=== PATIENT | male | born 1990 | race Caucasian/White ===

== ENCOUNTER 2016-08-22 19:49 | Emergency (ER) | payer OTHER ==
--- NOTE | ~2016-08-22 | CR126 ---
[facility] A Service of [facility] RADIOLOGY TEXT RESULTS PATIENT: MICHELLE HOWARD LOCATION: [facility]FT[facility] : 88 UNIT #: [id number] AGE: [address]: Asuncion Ramirez APRN SEX: M ORDER DR: [id number] [facility] [address] [place], [place] [address] [id number] MR#: [id number] Acc #: [id number] NAME: MICHELLE HOWARD : 1990 SEX: M STUDY DATE/TIME: 08/22/2016 21:31 UNIT: [facility] ROOM: STUDY DESCRIPTION: CR Foot Complete Min 3 View Lt Attending Physician: Asuncion Ramirez A.P.R.N. Ordering Physician: Asuncion Ramirez A.P.R.N. MEDICAL IMAGING REPORT This report is preliminary unless electronic signature is present EXAM Left foot 08/22 INDICATIONS Puncture wound on the plantar surface after stepping on osvaldo cage today. COMPARISON STUDIES 01/24/2009. FINDINGS 3 views of the left foot were obtained. There is no fracture or malalignment. There are no radiopaque foreign bodies. There is no soft tissue gas. IMPRESSION Negative left foot. Dictated by... Oli Lees Jr., M.D. THIS IS AN ELECTRONICALLY VERIFIED REPORT Oli Lees Jr., M.D. at 08/22/2016 10:25 PM GARY/christie TD: 08/22/2016 22:09 JOB #: [id number] MEDICAL IMAGING REPORT Page 1 of 1 COPY
[~2016-08-22 19:49] MED LIST: IBUPROFEN PO
== END 2016-08-22 22:22 | disposition home or self-care (01) ==
LOC: CED 19:49 → CFTX 19:49
DX: S91.332A Puncture wound without foreign body, left foot, initial encounter (principal); Z23 Encounter for immunization; W01.0XXA Fall on same level from slipping, tripping and stumbling without subsequent striking against object, initial encounter; Y92.098 Other place in other non-institutional residence as the place of occurrence of the external cause
CPT/HCPCS: 73630; 90471; 90715; 99283